=== PATIENT | female | born 1985 | race African-American/Black ===

== ENCOUNTER 2022-06-25 04:43 | Emergency (ER) | payer BC ==
[~2022-06-25] VITALS: Ht 162.6 cm; Wt 53.5 kg
[2022-06-25 05:20] VITALS: BP 102/67
--- NOTE | 2022-06-25 05:35 | NUR ---
Patient came in to the er c/o dysuria. On room air, breathing evenly and unlabored. Kept comfortable, will continue to monitor accordingly.
[2022-06-25 06:22] LABS: BILIRUBIN,URINE NEGATIVE (NEGATIVE); COLOR,URINE YELLOW (YELLOW); LEUKOCYTE ESTERASE ,URINE 1+ (NEGATIVE); NITRITE, URINE POSITIVE (NEGATIVE); PROTEIN,URINE 1+ mg/dl (NEGATIVE); UGLUCOSE NEGATIVE (NEGATIVE); UROBILINOGEN,URINE 0.2 EU/dL (0.2)
[2022-06-25] MEDS ORDERED: HYDROCODONE/APAP 5/325MG TABLET ONE (06:22)
[2022-06-25] MEDS ORDERED: NITROFURANTOIN/MONOHYDRATE MACROCRYSTALS 100 MG CAPSULE PO ONE (06:30)
[2022-06-25] MEDS ORDERED: HYDROCODONE/APAP 5/325MG TABLET PO ONE (06:30)
[2022-06-25] MEDS ORDERED: PHEN-894 PO (06:31)
[2022-06-25] MEDS ORDERED: NITR100C6 PO (06:31)
[2022-06-25] MEDS ORDERED: NITROFURANTOIN/MONOHYDRATE MACROCRYSTALS 100 MG CAPSULE ONE (06:32)
[2022-06-25 06:51] LABS: BACTERIA,URINE Many /HPF (None Seen); SQUAMOUS EPITHELIAL CELL,UR Few /HPF (None Seen); WBC,URINE 21-50 /HPF (0-3)
== END 2022-06-25 06:39 | disposition home or self-care (01) ==
LOC: ER 04:47
DX: N39.0 Urinary tract infection, site not specified (principal); R30.0 Dysuria; Z87.440 Personal history of urinary (tract) infections
CPT/HCPCS: 81001; 87086-TC